=== PATIENT | female | born 1940 | race Caucasian/White ===

== ENCOUNTER → 2017-08-31 | Outpatient (CLI) | payer MEDICARE, OTHER ==
[~2017-08-31] MED LIST: ASPI-715 PO; CALC-965 PO; CALC500T42 PO; CYAN500T7 PO; CYCL1DRO6 OP; IBAN150T6 PO; INUL2TAB7 PO; MULT1CAP41 PO; PRA20 PO; PREOD OU; ROS10 PO; [UNRECOGNIZED DRUG - CODE] OD; calcium PO
--- NOTE | 2017-09-03 09:57 | RADIOLOGY IMAGING REPORT ---
FACILITY: [facility] - [place] PATIENT NAME: ENDY VILLA : [id number] MR: [id number] V: [id number] EXAM DATE: [id number] ORDERING PHYSICIAN: LOUIS VELAZQUEZ TECHNOLOGIST: Gladis Benjamin PROCEDURE:BILATERAL DIGITAL SCREENING MAMMOGRAM WITH CAD ASSISTED INTERPRETATION AND 3D BREAST TOMOSYNTHESIS. COMPARISON:Prior mammograms dated 08/09/16, 08/02/15, 07/30/14, 07/28/13, 08/24/12 and 07/24/11. INDICATIONS:SCREENING. FINDINGS: Moderately heterogeneous fibroglandular tissue is seen throughout the breasts. The parenchymal pattern has remained stable when allowing for difference in mammographic technique and patient positioning. There is no evidence of malignant appearing mass, malignant appearing calcification or other secondary sign of malignancy in either breast. DIAGNOSTIC CATEGORY 2--BENIGN FINDING. RECOMMENDATIONS: ROUTINE MAMMOGRAM AND CLINICAL EVALUATION. IMPRESSION: Bi-RADS 2: No significant abnormality is seen. Images were reviewed with R2CAD and 3D breast tomosynthesis. Dictated by: Nata Reich M.D. on 08/31/2017 at 15:26 Transcribed by: TAVIA on 09/02/2017 at 20:04 Approved by: Nata Reich M.D. on 09/03/2017 at 9:57 [facility]
== END ==
LOC: MAMO 01:12
PROVIDERS: ATTEND Nurse Practitioner Family
DX: Z12.31 Encounter for screening mammogram for malignant neoplasm of breast (principal)
CPT/HCPCS: 77063; 77067

== ENCOUNTER 2018-04-19 15:54 | Emergency (ER) | payer MEDICARE, OTHER ==
[~2018-04-19 15:54] MED LIST changes: +HYDR30CR10 TP
--- NOTE | 2018-04-19 16:06 | ER Report ---
History and Physical Time Seen By MD: 16:06 Hx. of Stated Complaint: pt reports she tripped and hit her R knee on a rock while hiking, knee is "stiffening up" HPI/ROS CHIEF COMPLAINT: Right knee injury HISTORY OF PRESENT ILLNESS: This is a 77-year-old female presents to the emergency department for a right knee injury. Patient states that about 12:00 today she was hiking, tripped and fell injuring her right knee. Patient is conc erned about her patella. She does have a small abrasion in skin flap that is not suturable. She does have swelling and bruising to the patella. Patient denies any other injuries no other complaints. REVIEW OF SYSTEMS: Respiratory: No cough, no dyspnea. Cardiovascular: No chest pain, no palpitations. Gastrointestinal: No vomiting, no abdominal pain. Musculoskeletal: As above. Allergies: Coded Allergies: Penicillins (Verified Allergy, Mild, RASH, 04/19/18) amoxicillin (Verified Allergy, Mild, RASH, 04/19/18) Home Meds Reported Medications Cyclosporine (RESTASIS) 1 Each Droperette, 1 EACH OP BID 04/19/15 Cyanocobalamin (Vitamin B-12) (Vitamin B-12) 500 Mcg Tab.subl, 1000 MCG PO 3XW 04/19/15 Calcium Carbonate/Vitamin D3 (CALCIUM 1,000 + D3 CAPLET) 1 Each Tablet, 1 EACH PO DAILY 04/19/15 Fiber (Fiber) 1 Tab.chew Tab.chew, 4 TAB.CHEW PO QID 02/02/12 Past Medical/Surgical History The patient has a past medical and surgical history of hyperlipidemia, generalized arthritis, osteoporosis, takes Boniva, rib fractures, sacral fracture, chronic back pain, glaucoma, hernia repair, cervical cancer, tonsillectomy, cataract surgery. Reviewed Nurses Notes: Yes Hx Smoking: No Smoking Status: Never Smoker Hx Substance Use Disorder: No Hx Alcohol Use: Yes Constitutional Vital Sign - Last 24 Hours 04/19/18 04/19/18 15:55 18:11 Temp 98.0 Pulse 92 92 Resp 16 16 B/P (MAP) 140/77 132/75 (94) Pulse Ox 94 94 O2 Delivery Room Air Room Air Physical Exam General Appearance: The patient is alert, has no immediate need for airway protection and no current signs of toxicity. Eyes: Pupils equal and round no injection. Respiratory: Chest is non tender, lungs are clear to auscultation. Cardiac: regular rate and rhythm. Gastrointestinal: Abdomen is soft and non tender, no masses, bowel sounds normal. Musculoskeletal: Neck: Neck is supple and non tender. Extremities have full range of motion small abrasion and skin tear to the right patella, ecchymosis and swelling noted. No crepitus or obvious deformities. Skin: No rashes or lesions. [ ] DIFFERENTIAL DIAGNOSIS: After history and physical exam differential diagnosis was considered for patellar fracture, contusion, abrasion, laceration and bursitis. Medical Decision Making EKG/Imaging Imaging [facility]: [facility] [place] Patient: Brunilda Villalobos : 1940 Visit/Account:[id number] Date of Sevice: 04/19/2018 KNEE 4 VIEW RIGHT Indication: fall, knee injury Comparison: None. Findings: Distal femur, proximal tibia and fibula, the patella demonstrate normal mineralization and alignment. Soft tissues are unremarkable. IMPRESSION: Normal right knee radiograph. Report Dictated By: Ravin Izquierdo at 04/19/2018 5:07 PM Report E-Signed By: Ravin Izquierdo at 04/19/2018 5:08 PM WSN:[id number] ED Course/Re-evaluation ED Course The patient was admitted to room. History and physical obtained. Differential diagnoses were considered. 4 view x-ray of the right knee negative for any acute osseous abnormalities. I did review these results with the patient patient was relieved. The patient is this is likely a contusion and will likely improve with the next several days apply ice as needed try some range of motion exercises follow-up with primary care provider if no improvement within the next week return to the ER for worsening symptoms. Monitor the abrasion for infections. Patient declined pain medications while in the ER. Patient and other questions or concerns discharged home. Decision to Disposition Date: Apr 19, 2018 Decision to Disposition Time: 18:06 Depart Departure Latest Vital Signs Vital Signs Date Time Temp Pulse Resp B/P (MAP) Pulse Ox O2 Delivery O2 Flow Rate FiO2 04/19/18 18:11 92 16 132/75 (94) 94 Room Air 04/19/18 15:55 98.0 Impression: Primary Impression: Contusion of right knee Additional Impression: Abrasion of right knee Condition: Improved Disposition: HOME OR SELF-CARE Referrals: LOUIS VELAZQUEZ (PCP) Patient Instructions: Abrasion (ED), Contusion in Adults (ED) Additional Instructions: There is no sign of patellar fracture or any other concerns on the x-rays. Take ibuprofen or Tylenol as needed for pain. Monitor the abrasion for infection, keep the wound cleaned and covered. If no improvement in the next 7 days follow-up with your primary care provider or [facility]. Drink plenty of water. Get plenty of rest. Return to the emergency department for any other concerns or worsening symptoms. Problem Qualifiers Primary Impression: Contusion of right knee Encounter type: initial encounter Qualified Codes: S80.01XA - Contusion of right knee, initial encounter Additional Impression: Abrasion of right knee Encounter type: initial encounter Qualified Codes: S80.211A - Abrasion, right knee, initial encounter ABIMBOLA IBANEZ-MICHELET Apr 19, 2018 16:06
[2018-04-19] MEDS ORDERED: DIPHTH/TETANUS/ACEL. PERTUSSIS IM ONLY ONE (16:40)
--- NOTE | 2018-04-19 17:12 | RADIOLOGY IMAGING REPORT ---
FACILITY: [facility] PATIENT NAME: Brunilda Villalobos : 1940 MR: [id number] V: [id number] EXAM DATE: ORDERING PHYSICIAN: ABIMBOLA IBANEZ TECHNOLOGIST: Location: [facility] [place] Patient: Brunilda Villalobos : 1940 Visit/Account:[id number] Date of Sevice: 04/19/2018 KNEE 4 VIEW RIGHT Indication: fall, knee injury Comparison: None. Findings: Distal femur, proximal tibia and fibula, the patella demonstrate normal mineralization and alignment. Soft tissues are unremarkable. IMPRESSION: Normal right knee radiograph. Report Dictated By: Ravin Izquierdo at 04/19/2018 5:07 PM Report E-Signed By: Ravin Izquierdo at 04/19/2018 5:08 PM WSN:[id number]
[2018-04-19 18:11] VITALS: BP 132/75
== END 2018-04-19 18:12 | disposition home or self-care (01) ==
LOC: ER 16:00
DX: S80.01XA Contusion of right knee, initial encounter (principal); S80.211A Abrasion, right knee, initial encounter
CPT/HCPCS: 73564; 90471; 90715; 99283

== ENCOUNTER → 2018-09-12 | Outpatient (CLI) | payer MEDICARE, OTHER ==
--- NOTE | 2018-09-13 09:02 | RADIOLOGY IMAGING REPORT ---
FACILITY: [facility] - [place] PATIENT NAME: ENDY VILLA : [id number] MR: [id number] V: [id number] EXAM DATE: [id number] ORDERING PHYSICIAN: LOUIS VELAZQUEZ TECHNOLOGIST: Gladis Benjamin PROCEDURE:BILATERAL DIGITAL SCREENING MAMMOGRAM WITH CAD ASSISTED INTERPRETATION & 3D TOMOSYNTHESIS COMPARISON:Prior mammograms 08/31/17, 08/09/16, 08/02/15, 07/30/14, 07/28/13, 07/25/12. INDICATIONS:SCREENING FINDINGS: The breasts are heterogeneously dense which can obscure small masses. In the medial portion of the Left breast on the Left CC view in the anterior 1/3 there is a small ovoid indistinct asymmetry for which Spot compression view is recommended. This is best seen on Tomographic slice 29. Spot compression view is recommended for further evaluation. DIAGNOSTIC CATEGORY 0--INCOMPLETE: NEED ADDITIONAL IMAGING EVALUATION. RECOMMENDATIONS: ADDITIONAL MAMMOGRAPHIC VIEWS REQUIRED: LEFT BREAST. IMPRESSION: BIRADS 0: Incomplete. Additional views of the Left breast recommended as described above. Dictated by: Nata Reich M.D. on 09/12/2018 at 9:17 Transcribed by: VICKI on 09/12/2018 at 9:31 Approved by: Nata Reich M.D. on 09/13/2018 at 9:01 [facility]
== END ==
LOC: MAMO 01:32
PROVIDERS: ATTEND Nurse Practitioner Family
DX: Z12.31 Encounter for screening mammogram for malignant neoplasm of breast (principal); R92.8 Other abnormal and inconclusive findings on diagnostic imaging of breast
CPT/HCPCS: 77063; 77067

== ENCOUNTER → 2018-10-01 | Outpatient (CLI) | payer MEDICARE, OTHER ==
--- NOTE | 2018-10-02 08:34 | RADIOLOGY IMAGING REPORT ---
FACILITY: [facility] PATIENT NAME: ENDY VILLA : [id number] MR: [id number] V: [id number] EXAM DATE: ORDERING PHYSICIAN: LOUIS VELAZQUEZ TECHNOLOGIST: Gladis Benjamin PROCEDURE:LEFT DIGITAL DIAGNOSTIC MAMMOGRAM WITH CAD ASSISTED INTERPRETATION & 3D TOMOSYNTHESIS COMPARISON:Prior mammograms 09/12/18, 08/31/17, 08/09/16, 08/02/15, 07/30/14, 07/28/13, 07/25/12 INDICATIONS:FURTHER EVAL FINDINGS: Patient returned for spot compression view in the Left CC projection with 3D tomosynthesis. Small focal area of increased density in the anterior third of the Left breast medial portion of the Left CC view appeared compressible & apparently represents a summation shadow. There is no demonstration of malignant appearing mass or calcification in the Left breast. DIAGNOSTIC CATEGORY 1--NEGATIVE. RECOMMENDATIONS: ROUTINE MAMMOGRAM AND CLINICAL EVALUATION. IMPRESSION: BIRADS 1: Negative. No significant abnormality is seen in the Left breast. Dictated by: Nata Reich M.D. on 10/01/2018 at 16:50 Transcribed by: RAUL on 10/02/2018 at 7:29 Approved by: Nata Reich M.D. on 10/02/2018 at 8:33 [facility]
== END ==
LOC: MAMO 00:43
PROVIDERS: ATTEND Nurse Practitioner Family
DX: R92.8 Other abnormal and inconclusive findings on diagnostic imaging of breast (principal)
CPT/HCPCS: 77061; 77065